=== PATIENT | female | born 2000 | race American Indian/Alaskan Native ===

== ENCOUNTER 2022-02-18 15:33 | Emergency (ER) | payer SELFPAY ==
[2022-02-18 15:44] VITALS: BP 120/69
== END 2022-02-19 02:17 | disposition left against medical advice (07) ==
LOC: ED 15:33
DX: M25.571 Pain in right ankle and joints of right foot (principal); Z53.21 Procedure and treatment not carried out due to patient leaving prior to being seen by health care provider